=== PATIENT | female | born 1955 | race Caucasian/White ===

== ENCOUNTER 2021-02-08 11:34 | Outpatient (AMBR) | payer MEDICARE, MEDICAID, SELFPAY ==
--- NOTE | 2021-01-17 13:00 | PT.OIERPT ---
PT OP Initial Eval Patient Information Visit Reasons: lumbar radiculitis Medical Diagnosis: M54.16 Treatment Dx #1: LBP Date of Onset: 8 weeks ago Initial Assessment Subjective Pt is 65 yr old female with long Hx of LBP exacerbation x8 weeks that she attributes to bulging disks. Increased pain with bending, lifting and twisting. Difficulty with walking more than 5 minutes to shop and do HH chores. PLOF: pt could ambulate community distances without limitations. PMH: COPD, pacemaker, HTN, DM, thyroidism, allergies, Covid x2, supplemental 02 at home Imaging: MRI in EMR L5-S1 2 mm central lumbar disc bulge, L4-L5 10 mm central right paracentral disc bulge displacing the right L5 nerve root, L3-L4 4 mm central lumbar disc bulge, L2-L3 5 mm right paracentral disc bulge?? Pt goal: less LBP Objective Trunk ArOM: B SB 50% of normal with pain L>R Extension: 30% with pain around L4-5, L5-S1 centrally flexion: 8 from floor with LBP B rotation: 60% R SLR ROM: 45 deg. L SLR: 50 deg with posterior knee neural tension, LBP LE strength: B hamstrings: 4-/5 Quads 4-/5 TTP: moderate paraspinals L4-5 Neuro: L SLR: positive Assessment Pt presents with trunk flexion sensitivity and overlying myofascial pain and spasming around L4-5. Pt has lumbar extensor atrophy and pain with prolonged standing. These findings are consistent with MRI findings of lower lumbar disc bulges. Pt requires skilled therapy in order to decrease pain and improve standing tolerance and has fair rehab potential. Short Term and Assisted Goals 1. Ind with HEP 2. Improved standing tolerance to 20 minutes with <=4/10 LBP 3. Pt will improve ambulatory distance to [address] 4. Pt will squat x15 with lumbar lordosis and no increase in LBP Treatment Plan 90 day POC in order to complete visits. Pt requires skilled therapy in order to increase strength, decrease pain and address aforementioned impairments. Rx may consist of Therex, Manual therapy, Neuromuscular re-education, Gait training, and therapeutic activities. Modalities as indicated-moist heat packs, ice packs, mechanical traction, estim Frequency and Duration 2x a week for 6 weeks Certification Dates: 01/17/21 to 04/17/20 Office Procedures PT Treatments PT Date of Service: 01/17/21 OP PT Eval Mod Complex 30 minutes: Yes
--- NOTE | 2021-01-22 14:19 | PT.ODAYNRPT ---
PT Outpatient Daily Note Date of Service: 01/22/21 OP Daily Note Visit Reasons: lumbar radiculitis Outpatient Physical Therapy Treatment Date: 01/22/21 Subjective: Some LBP today and she has some LE mm cramping with the austrian ball LTR's. Pt points to the L5-S1 region centrally as site of pain. Objective: See f/S for therex MT: STM L5-S1 region with Graston x10' Mechanical traction L/S x7' at 35 lbs Assessment: Moderate tissue irritability with transitional movements and min/mod TTP with manual therapy. Plan: Continue per POC Length of Time (minutes) of Treatment: 30 Minutes Office Procedures PT Treatments PT Date of Service: 01/17/21 OP PT Eval Mod Complex 30 minutes: Yes PT Treatments PT Date of Service: 01/22/21 Therapeutic Exercise 15 minutes: Yes Manual Web Operations Manager 15 minutes: Yes
--- NOTE | 2021-01-24 09:45 | PT.ODAYNRPT ---
PT Outpatient Daily Note Date of Service: 01/24/21 OP Daily Note Visit Reasons: lumbar radiculitis Outpatient Physical Therapy Treatment Date: 01/24/21 Subjective: Pt reports 3/10 pain today. Pt reports that she was bending over to lifting thing recently. Pt reports mechanical traction is helping her walk. Objective: See flow chart for therex. MT: STM w/ graston L/S x 10mins. Mechanical Traction: L/S x 7mins. Assessment: Pt did not complete reps w/ SKTC on R leg due to increased pain. Pt had SOB during SB curls. Pt required rest breaks and verbal cues for proper therex technique. Pt tolerated MT w/ minimal complaints of pain. Pt had less pain response w/ mechanical traction. Pt does not prefer to lay flat due to difficulty breathing. Plan: Cont POC per PT. Length of Time (minutes) of Treatment: 30 Minutes Office Procedures PT Treatments PT Date of Service: 01/17/21 OP PT Eval Mod Complex 30 minutes: Yes PT Treatments PT Date of Service: 01/22/21 Therapeutic Exercise 15 minutes: Yes Manual Automatic Toe Laster 15 minutes: Yes PT Treatments PT Date of Service: 01/24/21 Therapeutic Exercise 15 minutes: Yes Manual Automatic Toe Laster 15 minutes: Yes
--- NOTE | 2021-01-28 14:26 | PT.ODAYNRPT ---
PT Outpatient Daily Note Date of Service: 01/28/21 OP Daily Note Visit Reasons: lumbar radiculitis Outpatient Physical Therapy Treatment Date: 01/28/21 Subjective: Pt states feeling a tad better today. Pt reports she is bending forward at home and feels out of breath at times. Objective: See flow chart for therex. Mechanical Traction: L/S 35lbs x 7mins. Assessment: Pt required multiple rest breaks in between therex due to SOB. Pt wanted to hold off on MT due to aggravation of fibromyalgia. Pt tolerated 7 minutes on sci fit to w/ out complaints. Pt was more motivated today w/ therapy. Plan: Cont POC per PT. Length of Time (minutes) of Treatment: 30 Minutes Office Procedures PT Treatments PT Date of Service: 01/28/21 Therapeutic Exercise 30 minutes: Yes PT Treatments PT Date of Service: 01/17/21 OP PT Eval Mod Complex 30 minutes: Yes PT Treatments PT Date of Service: 01/22/21 Therapeutic Exercise 15 minutes: Yes Manual Local Government Legislator 15 minutes: Yes PT Treatments PT Date of Service: 01/24/21 Therapeutic Exercise 15 minutes: Yes Manual Local Government Legislator 15 minutes: Yes
--- NOTE | 2021-01-31 14:25 | PT.ODAYNRPT ---
PT Outpatient Daily Note Date of Service: 01/31/2021 OP Daily Note Visit Reasons: lumbar radiculitis Outpatient Physical Therapy Treatment Date: 01/31/21 Subjective: pt states her back was feeling sore from the HEP. she attempted heel slides at home in her bed but was not the samething as it hurt her back. Objective: see flow sheet. Assessment: advised her to hold on the HEP and lets focus on the PT visits. pt felt better on a more firm surface but is not able to get on the floor at home due to difficulty getting back up. she did her exercises well and moved onto the L/s traction. she denies increase in pain as it helps her relieve the pressure of her low back. Plan: continue POC per PT. Length of Time (minutes) of Treatment: 30 Minutes ABRASIVE WORKER Service Modifier Method I: Divide the number of min of care provided by the ABRASIVE WORKER/ACID PURIFICATION EQUIPMENT OPERATOR by the total min of care provided then multiply by 100. If greater than 11 percent modifier is required. Method II: Divide the total time of care provided to patient by 10 (round to the nearest whole number) and add 1 min. to set the minimum time requirement. If treatment total was 60 min., then 10% of 6 min Did ABRASIVE WORKER provide more than 10% of the care?: Yes PT CQ modifier applied: CQ Modifier applied Office Procedures PT Treatments PT Date of Service: 01/28/21 Therapeutic Exercise 30 minutes: Yes PT Treatments PT Date of Service: 01/17/21 OP PT Eval Mod Complex 30 minutes: Yes PT Treatments PT Date of Service: 01/22/21 Therapeutic Exercise 15 minutes: Yes Manual Laborer Cheesemaking 15 minutes: Yes PT Treatments PT Date of Service: 01/24/21 Therapeutic Exercise 15 minutes: Yes Manual Laborer Cheesemaking 15 minutes: Yes PT Treatments PT Date of Service: 01/31/21 Traction Mechanical: Yes Therapeutic Exercise 15 minutes: Yes
--- NOTE | 2021-02-04 13:07 | PTNOTE_ITS ---
PT Outpatient Daily Note Date of Service: 02/04/21 OP Daily Note Visit Reasons: lumbar radiculitis Outpatient Physical Therapy Treatment Date: 02/04/21 Subjective: Pt reports her back is feeling okay today and she has to bend over a lot last weekend. Objective: See flow chart for therex. Mechanical Traction: L/S 40lbs x 7 mins. Assessment: Pt tolerated therex well w/ out complaints. Pt tolerated mechanical traction w/ good response. Pt slow to go from supine to sitting at supervision assistance. Plan: Cont POC per PT. Length of Time (minutes) of Treatment: 30 Minutes Office Procedures PT Treatments PT Date of Service: 01/28/21 Therapeutic Exercise 30 minutes: Yes PT Treatments PT Date of Service: 01/17/21 OP PT Eval Mod Complex 30 minutes: Yes PT Treatments PT Date of Service: 01/22/21 Therapeutic Exercise 15 minutes: Yes Manual Hostess Party Sales Representative 15 minutes: Yes PT Treatments PT Date of Service: 01/24/21 Therapeutic Exercise 15 minutes: Yes Manual Hostess Party Sales Representative 15 minutes: Yes PT Treatments PT Date of Service: 01/31/21 Traction Mechanical: Yes Therapeutic Exercise 15 minutes: Yes PT Treatments PT Date of Service: 02/04/21 Therapeutic Exercise 30 minutes: Yes
--- NOTE | 2021-02-08 14:18 | PTNOTE_ITS ---
PT Outpatient Daily Note Date of Service: 02/08/2021 OP Daily Note Visit Reasons: lumbar radiculitis Outpatient Physical Therapy Treatment Date: 02/08/21 Subjective: pt stated she did core exercises and that increased her back pain. advised her to stop the core exercises to see if her back pain resides. Objective: see flow sheet. Assessment: pt needed assisted with piriformis stretch as she is not able to reach and hold the knee. PROM for her stretch for BLE. she tolerated well with no complaints. she needed assistance with bed mobility due to back pain. onto the traction she held her position but is not sure of the traction increased her pain or the core exercises. Plan: continue POC per PT. Length of Time (minutes) of Treatment: 30 Minutes FOUNDATION RELATIONS DIRECTOR Service Modifier Method I: Divide the number of min of care provided by the FOUNDATION RELATIONS DIRECTOR/ROUNDING AND BACKING MACHINE OPERATOR by the total min of care provided then multiply by 100. If greater than 11 percent modifier is required. Method II: Divide the total time of care provided to patient by 10 (round to the nearest whole number) and add 1 min. to set the minimum time requirement. If treatment total was 60 min., then 10% of 6 min Did FOUNDATION RELATIONS DIRECTOR provide more than 10% of the care?: Yes PT CQ modifier applied: CQ Modifier applied Office Procedures PT Treatments PT Date of Service: 01/28/21 Therapeutic Exercise 30 minutes: Yes PT Treatments PT Date of Service: 01/17/21 OP PT Eval Mod Complex 30 minutes: Yes PT Treatments PT Date of Service: 01/22/21 Therapeutic Exercise 15 minutes: Yes Manual Medical Social Consultant 15 minutes: Yes PT Treatments PT Date of Service: 01/24/21 Therapeutic Exercise 15 minutes: Yes Manual Medical Social Consultant 15 minutes: Yes PT Treatments PT Date of Service: 01/31/21 Traction Mechanical: Yes Therapeutic Exercise 15 minutes: Yes PT Treatments PT Date of Service: 02/04/21 Therapeutic Exercise 30 minutes: Yes PT Treatments PT Date of Service: 02/08/21 Traction Mechanical: Yes Therapeutic Exercise 15 minutes: Yes
== END 2021-02-10 23:59 | disposition home or self-care (01) ==
PROVIDERS: PCP Physical Medicine & Rehabilitation Pain Medicine; Referring Provider Physical Medicine & Rehabilitation Pain Medicine; Visit Provider Physical Medicine & Rehabilitation Pain Medicine
DX: M54.16 Radiculopathy, lumbar region (principal); M54.50 Low back pain, unspecified; R26.2 Difficulty in walking, not elsewhere classified; M62.830 Muscle spasm of back; I10 Essential (primary) hypertension; E11.9 Type 2 diabetes mellitus without complications; Z95.0 Presence of cardiac pacemaker; J44.9 Chronic obstructive pulmonary disease, unspecified
CPT/HCPCS: 97012; 97110; 97140; 97162

== ENCOUNTER 2021-02-14 11:05 | Outpatient (AMBR) | payer MEDICARE, MEDICAID, SELFPAY ==
--- NOTE | 2021-02-11 13:06 | PT.ODAYNRPT ---
PT Outpatient Daily Note Date of Service: 02/11/2021 OP Daily Note Visit Reasons: lumbar radiculitis Outpatient Physical Therapy Treatment Date: 02/11/21 Subjective: Pt reports back is in a lot of pain today. She gardens a lot. Pt reports she wants to build strength. Objective: See flow chart for therex. Assessment: Pt had good response to HMP in supine and HMP helped alleviate some of her pain. Pt able to perform additional therex today due her preference of building strength. Plan: Cont POC per PT. Length of Time (minutes) of Treatment: 30 Minutes Office Procedures PT Treatments PT Date of Service: 02/11/21 Therapeutic Exercise 30 minutes: Yes
--- NOTE | 2021-02-14 14:29 | PT.ODAYNRPT ---
PT Outpatient Daily Note Date of Service: 02/14/21 OP Daily Note Visit Reasons: lumbar radiculitis Outpatient Physical Therapy Treatment Date: 02/14/21 Subjective: Pt feels like her legs are weak and wants to do some strengthening therex. Objective: See F/S for therex Assessment: R foot pain limits WB and bike therex. Mod/High tissue irritability with therex and supine to stand transfers. Plan: Continue per POC Length of Time (minutes) of Treatment: 30 Minutes Office Procedures PT Treatments PT Date of Service: 02/11/21 Therapeutic Exercise 30 minutes: Yes PT Treatments PT Date of Service: 02/14/21 Therapeutic Exercise 30 minutes: Yes
--- NOTE | 2021-03-28 11:36 | PT.ODS1RPT ---
PT OP Progress/Discharge Note Date of Service: 03/28/21 Progress Note/DC Note Progress Note/Discharge Note: DC Note Patient Information Visit Reasons: lumbar radiculitis Service Continue Service or Discharge: Discharge Discharge Date: 03/28/21 Status Assessment: Pt has attended 8/12 Rx visits but MD order says 8 visits. We need a signed progress note or new therapy order to extend POC by 6 visits in order to meet therapy goals. There has not been much change so far in objective findings due to continued pain. Plan: We never received a signed eval or progress note to extend the POC so pt is discharged from PT as she has done the 8 visits. Office Procedures PT Treatments PT Date of Service: 02/11/21 Therapeutic Exercise 30 minutes: Yes PT Treatments PT Date of Service: 02/14/21 Therapeutic Exercise 30 minutes: Yes
== END 2021-03-12 23:59 | disposition home or self-care (01) ==
PROVIDERS: PCP Physical Medicine & Rehabilitation Pain Medicine; Referring Provider Physical Medicine & Rehabilitation Pain Medicine; Visit Provider Physical Medicine & Rehabilitation Pain Medicine
DX: M54.16 Radiculopathy, lumbar region (principal); M54.50 Low back pain, unspecified; R26.2 Difficulty in walking, not elsewhere classified; I10 Essential (primary) hypertension; E11.9 Type 2 diabetes mellitus without complications; Z95.0 Presence of cardiac pacemaker
CPT/HCPCS: 97110

== ENCOUNTER → 2024-03-01 | Outpatient (CLI) | payer OTHER, MEDICAID, SELFPAY ==
[2024-03-01 13:39] LABS: Collection Type, Urine Clean Catch
[2024-03-01 13:49] LABS: Basophils % (Auto) 1 % (0-2.5); Eosinophils # (Auto) 0.2 Thou/mm3 (0.0-0.5); Eosinophils % (Auto) 2 % (0-10); Hematocrit 43.4 % (36.0-46.0); Hemoglobin 13.7 g/dL (12.0-16.0); Immature Granulocytes % (Auto) 1 % (0-0); Immature Granulocytes Auto 0.11 Thou/mm3 (0.00-0.00); Lymphocytes # (Auto) 2.3 Thou/mm3 (1.0-4.8); Lymphocytes % (Auto) 28 % (10-50); Mean Corpuscular HGB Conc 31.6 g/dl (31.0-37.0); Mean Corpuscular Hemoglobin 27.3 pg (25.0-35.0); Mean Corpuscular Volume 87 fL (80-100); Monocytes # (Auto) 0.5 Thou/mm3 (0.0-0.8); Monocytes % (Auto) 6 % (0-12); Neutrophils # (Auto) 5.1 Thou/mm3 (1.8-7.7); Neutrophils % (Auto) 62 % (37-80); Nucleated Red Blood Cell % 0 /100 WBC (0); Platelet Count 141 Thou/mm3 (140-440); RDW Standard Deviation 47.9 fL (36.4-46.3); Red Blood Count 5.02 Miln/mm3 (4.00-5.20); White Blood Count 8.2 Thou/mm3 (3.6-11.0)
[2024-03-01 14:08] LABS: Glucose Estimated Average 140 mg/dL (80-131); Hemoglobin A1C 6.5 % Hgb (4.8-6.0)
[2024-03-01 14:15] LABS: Alanine Aminotransferase 34 U/L (10-49); Albumin, Serum 4.3 gm/dL (3.4-4.8); Alkaline Phosphatase 88 U/L (46-116); Anion Gap 6 (7-16); Aspartate Amino Transferase 23 U/L (0-34); BUN/Creatinine Ratio 26 Ratio (12-20); Bilirubin,Total 0.5 mg/dL (0.3-1.2); Blood Urea Nitrogen 18 mg/dL (9-23); Calcium 9.3 mg/dL (8.3-10.6); Calcium (Corrected) 9.3 mg/dL (8.5-10.1); Carbon Dioxide 29.2 mMol/L (20.0-31.0); Cardiac Risk Estimate 2.7 RATIO (3.7-5.6); Chloride 104 mMol/L (98-107); Cholesterol 138 mg/dL (132-200); Creatinine (Component) 0.7 mg/dL (0.6-1.3); Globulin 2.2 gm/dL (2.3-3.5); Glucose 128 mg/dL (74-106); HDL Cholesterol 51 mg/dL (40-60); LDL Cholesterol,Calculated 60 mg/dL (0-130); Osmolality,Calculated 281 (275-295); Potassium 3.8 mMol/L (3.4-5.1); Sodium 139 mMol/L (136-145); Total Protein 6.5 gm/dL (5.7-8.2); Triglycerides 137 mg/dL (30-150); eGFR > 60 See Note
[2024-03-01 14:22] LABS: Creatinine MALB Rnd Ur 76 mg/dL (30-125); Microalbumin, Random Urine < 3 mg/L (0-300)
[2024-03-01 14:23] LABS: Bilirubin,Urine Negative (Negative); Blood,Urine Negative (Negative); Clarity,Urine Clear (Clear/Hazy); Color,Urine Lt-Yellow (Lt Yel-Yel); Glucose, Urine 4+ (Negative); Ketones,Urine Negative (Negative); Leukocyte Esterase,Urine Negative (Negative); Nitrite,Urine Negative (Negative); PH,Urine 6.5 (5.0-7.0); Protein,Urine Negative (Neg - Trace); RBC,Urine 1 /hpf (0-3); Specific Gravity,Urine 1.023 (1.001-1.035); Squamous Epithelial Cell,Urine < 1 /hpf (0-5); Urobilinogen,Urine Negative mg/dL (0.0-1.0); WBC,Urine 2 /hpf (0-5)
== END | disposition home or self-care (01) ==
PROVIDERS: PCP Internal Medicine; Referring Provider Internal Medicine; Visit Provider Internal Medicine
DX: E11.9 Type 2 diabetes mellitus without complications (principal); I10 Essential (primary) hypertension; E78.5 Hyperlipidemia, unspecified; E03.9 Hypothyroidism, unspecified
CPT/HCPCS: 36415; 80053; 80061; 81001; 82043; 82570; 83036; 84443; 85025

== ENCOUNTER → 2024-06-23 | Outpatient (CLI) | payer MEDICARE, MEDICAID, SELFPAY ==
[2024-06-23 14:09] LABS: Collection Type, Urine Clean Catch
[2024-06-23 14:22] LABS: Basophils % (Auto) 1 % (0-2.5); Eosinophils # (Auto) 0.2 Thou/mm3 (0.0-0.5); Eosinophils % (Auto) 2 % (0-10); Immature Granulocytes % (Auto) 0 % (0-0); Immature Granulocytes Auto 0.03 Thou/mm3 (0.00-0.00); Lymphocytes # (Auto) 2.2 Thou/mm3 (1.0-4.8); Lymphocytes % (Auto) 32 % (10-50); Mean Corpuscular HGB Conc 31.8 g/dl (31.0-37.0); Mean Corpuscular Hemoglobin 27.6 pg (25.0-35.0); Mean Corpuscular Volume 87 fL (80-100); Monocytes # (Auto) 0.6 Thou/mm3 (0.0-0.8); Monocytes % (Auto) 8 % (0-12); Neutrophils # (Auto) 3.9 Thou/mm3 (1.8-7.7); Neutrophils % (Auto) 57 % (37-80); Nucleated Red Blood Cell % 0 /100 WBC (0); Platelet Count 173 Thou/mm3 (140-440); RDW Standard Deviation 46.6 fL (36.4-46.3); Red Blood Count 5.07 Miln/mm3 (4.00-5.20); White Blood Count 6.8 Thou/mm3 (3.6-11.0)
[2024-06-23 14:28] LABS: Bacteria,Urine 3+; Bilirubin,Urine Negative (Negative); Blood,Urine Negative (Negative); Clarity,Urine Clear (Clear/Hazy); Color,Urine Lt-Yellow (Lt Yel-Yel); Glucose, Urine 4+ (Negative); Ketones,Urine Negative (Negative); Leukocyte Esterase,Urine Negative (Negative); Nitrite,Urine Negative (Negative); Protein,Urine Negative (Neg - Trace); RBC,Urine 1 /hpf (0-3); Specific Gravity,Urine 1.028 (1.001-1.035); Squamous Epithelial Cell,Urine 1 /hpf (0-5); Urobilinogen,Urine Negative mg/dL (0.0-1.0); WBC,Urine 3 /hpf (0-5)
[2024-06-23 14:42] LABS: Glucose Estimated Average 143 mg/dL (80-131); Hemoglobin A1C 6.6 % Hgb (4.8-6.0)
[2024-06-23 15:05] LABS: Creatinine MALB Rnd Ur 62 mg/dL (30-125); Microalbumin, Random Urine < 3 mg/L (0-300)
[2024-06-23 15:22] LABS: Alanine Aminotransferase 34 U/L (10-49); Albumin, Serum 4.4 gm/dL (3.4-4.8); Anion Gap 7 (7-16); Aspartate Amino Transferase 22 U/L (0-34); BUN/Creatinine Ratio 26 Ratio (12-20); Bilirubin,Total 0.6 mg/dL (0.3-1.2); Blood Urea Nitrogen 18 mg/dL (9-23); Calcium 9.5 mg/dL (8.3-10.6); Calcium (Corrected) 9.5 mg/dL (8.5-10.1); Chloride 102 mMol/L (98-107); Creatinine (Component) 0.7 mg/dL (0.6-1.3); Glucose 132 mg/dL (74-106); Osmolality,Calculated 287 (275-295); Sodium 142 mMol/L (136-145); Total Protein 6.6 gm/dL (5.7-8.2); eGFR > 60 See Note
[2024-06-23 15:23] LABS: Alkaline Phosphatase 92 U/L (46-116); Cardiac Risk Estimate 2.5 RATIO (3.7-5.6); Cholesterol 134 mg/dL (132-200); Globulin 2.2 gm/dL (2.3-3.5); HDL Cholesterol 54 mg/dL (40-60); LDL Cholesterol,Calculated 56 mg/dL (0-130); Thyroid Stimulating Hormone 1.14 uIU/mL (0.55-4.78); Triglycerides 119 mg/dL (30-150)
== END | disposition home or self-care (01) ==
LOC: COPL 13:39
PROVIDERS: PCP Internal Medicine; Referring Provider Internal Medicine; Visit Provider Internal Medicine
DX: E11.9 Type 2 diabetes mellitus without complications (principal); I10 Essential (primary) hypertension; E78.5 Hyperlipidemia, unspecified; E03.9 Hypothyroidism, unspecified
CPT/HCPCS: 36415; 80053; 80061; 81001; 82043; 82570; 83036; 84443; 85025

== ENCOUNTER → 2024-07-21 | Outpatient (CLI) | payer MEDICARE, MEDICAID, SELFPAY ==
--- NOTE | 2024-07-21 09:30 | XR_ITS ---
Examination: Screening digital mammography, bilateral Computer aided detection 3-D breast Tomosynthesis, bilateral Date and time of exam: 07/21/2024, 9:37 AM Comparisons: December 2021, June 2023 Indications: Screening Technique: Nonmagnified MLO, CC views of the breasts to been obtained, reconstructed from 3-D Tomosynthesis images. R2 computer aided detection program utilized for evaluation of suspicious masses and/or abnormal calcifications. 3-D Tomosynthesis images obtained. Technologist: Findings: There are scattered areas of fibroglandular density. No evidence of abnormal masses or suspicious calcifications. Impression: BI-RADS category 1: Negative findings (within normal) Recommend 1 year follow-up mammogram
== END | disposition home or self-care (01) ==
LOC: CDIM 09:24
PROVIDERS: Referring Provider Internal Medicine; Visit Provider Internal Medicine
DX: Z12.31 Encounter for screening mammogram for malignant neoplasm of breast (principal); R92.313 Mammographic fatty tissue density, bilateral breasts
CPT/HCPCS: 77063; 77067

== ENCOUNTER → 2024-10-26 | Outpatient (CLI) | payer MEDICARE, MEDICAID, SELFPAY ==
[2024-10-26 14:12] LABS: Basophils # (Auto) 0.0 Thou/mm3 (0.0-0.2); Basophils % (Auto) 1 % (0-2.5); Eosinophils # (Auto) 0.2 Thou/mm3 (0.0-0.5); Eosinophils % (Auto) 2 % (0-10); Hematocrit 40.9 % (36.0-46.0); Hemoglobin 13.4 g/dL (12.0-16.0); Immature Granulocytes Auto 0.09 Thou/mm3 (0.00-0.00); Lymphocytes # (Auto) 2.4 Thou/mm3 (1.0-4.8); Lymphocytes % (Auto) 33 % (10-50); Mean Corpuscular HGB Conc 32.8 g/dl (31.0-37.0); Mean Corpuscular Hemoglobin 28.2 pg (25.0-35.0); Mean Corpuscular Volume 86 fL (80-100); Monocytes # (Auto) 0.5 Thou/mm3 (0.0-0.8); Monocytes % (Auto) 7 % (0-12); Neutrophils # (Auto) 4.1 Thou/mm3 (1.8-7.7); Neutrophils % (Auto) 56 % (37-80); Nucleated Red Blood Cell # 0.00 Thou/mm3 (0.00-0.00); Nucleated Red Blood Cell % 0 /100 WBC (0); Platelet Count 175 Thou/mm3 (140-440); RDW Standard Deviation 47.5 fL (36.4-46.3); Red Blood Count 4.76 Miln/mm3 (4.00-5.20); White Blood Count 7.2 Thou/mm3 (3.6-11.0)
[2024-10-26 14:22] LABS: Glucose Estimated Average 143 mg/dL (80-131); Hemoglobin A1C 6.6 % Hgb (4.8-6.0)
[2024-10-26 14:24] LABS: Collection Type, Urine Clean Catch
[2024-10-26 14:36] LABS: Alanine Aminotransferase 32 U/L (10-49); Albumin, Serum 4.3 gm/dL (3.4-4.8); Albumin/Globulin Ratio 1.7 (1.2-2.2); Alkaline Phosphatase 86 U/L (46-116); Anion Gap 7 (7-16); Aspartate Amino Transferase 25 U/L (0-34); BUN/Creatinine Ratio 17 Ratio (12-20); Bilirubin,Total 0.4 mg/dL (0.3-1.2); Blood Urea Nitrogen 15 mg/dL (9-23); Calcium 9.3 mg/dL (8.3-10.6); Calcium (Corrected) 9.3 mg/dL (8.5-10.1); Carbon Dioxide 29.1 mMol/L (20.0-31.0); Cardiac Risk Estimate 2.4 RATIO (3.7-5.6); Chloride 103 mMol/L (98-107); Cholesterol 119 mg/dL (132-200); Creatinine (Component) 0.9 mg/dL (0.6-1.3); Globulin 2.5 gm/dL (2.3-3.5); Glucose 126 mg/dL (74-106); HDL Cholesterol 49 mg/dL (40-60); LDL Cholesterol,Calculated 49 mg/dL (0-130); Osmolality,Calculated 280 (275-295); Potassium 4.1 mMol/L (3.4-5.1); Sodium 139 mMol/L (136-145); Thyroid Stimulating Hormone 1.76 uIU/mL (0.55-4.78); Total Protein 6.8 gm/dL (5.7-8.2); Triglycerides 106 mg/dL (30-150); eGFR > 60 See Note
[2024-10-26 14:45] LABS: Bacteria,Urine 1+; Bilirubin,Urine Negative (Negative); Blood,Urine Negative (Negative); Clarity,Urine Clear (Clear/Hazy); Color,Urine Lt-Yellow (Lt Yel-Yel); Glucose, Urine 4+ (Negative); Ketones,Urine Negative (Negative); Leukocyte Esterase,Urine Negative (Negative); Nitrite,Urine Negative (Negative); PH,Urine 6.0 (5.0-7.0); Protein,Urine Negative (Neg - Trace); RBC,Urine 1 /hpf (0-3); Specific Gravity,Urine 1.031 (1.001-1.035); Squamous Epithelial Cell,Urine 2 /hpf (0-5); Urobilinogen,Urine Negative mg/dL (0.0-1.0); WBC,Urine 2 /hpf (0-5)
[2024-10-26 14:47] LABS: Creatinine MALB Rnd Ur 83 mg/dL (30-125); Microalbumin Creat Ratio 5 mg/gCrea (<30); Microalbumin, Random Urine 4 mg/L (0-300)
== END | disposition home or self-care (01) ==
LOC: COPL 12:29
PROVIDERS: PCP Internal Medicine; Referring Provider Internal Medicine; Visit Provider Internal Medicine
DX: E11.9 Type 2 diabetes mellitus without complications (principal); I10 Essential (primary) hypertension; E78.5 Hyperlipidemia, unspecified
CPT/HCPCS: 36415; 80053; 80061; 81001; 82043; 82570; 83036; 84443; 85025

== ENCOUNTER → 2024-11-15 | Outpatient (CLI) | payer MEDICARE, MEDICAID, SELFPAY ==
[2024-11-15 13:32] LABS: Sed Rate (ESR) 4 mm/hr (0-30)
[2024-11-21 14:46] LABS: CCP Antibody (IgG)* <16 Units; DNA (ds) Antibody* <1 IU/mL
== END | disposition home or self-care (01) ==
LOC: COPL 12:18
PROVIDERS: PCP Internal Medicine; Referring Provider Internal Medicine; Visit Provider Internal Medicine
DX: M12.38 Palindromic rheumatism, other specified site (principal)
CPT/HCPCS: 36415; 85652; 86200; 86225

== ENCOUNTER → 2024-12-16 | Outpatient (CLI) | payer MEDICARE, MEDICAID, SELFPAY ==
--- NOTE | 2024-12-16 13:20 | XR_ITS ---
Examination: Bone densitometry Date and time of exam:December 16, 2024, 1333 hours INDICATIONS: Hysterectomy age 46, series for asthma 40 years Technique: Lumbar spine and hip total bone mineralization values of an calculated. Peak reference and age match control results have been displayed. Findings: Lumbar spine total bone mineralization is1.228 gm/cm2. This is 1.6 standard deviations above peak reference. This is 3.7 standard deviations above age-matched controls. Hip total bone mineralization is 1.168 gm/cm2 This is 1.9 standard deviations above peak reference. This is 3.3 standard deviations above age-matched controls Impression: There is normal mineralization based on lumbar spine measurements. There is normal mineralization based on hip measurements Lumbar mineralization is increased 5.8% compared with April 11, 2022. Hip mineralization is increased 3.1% compared with April 11, 2022
== END | disposition home or self-care (01) ==
LOC: CDIM 13:04
PROVIDERS: Referring Provider Internal Medicine; Visit Provider Internal Medicine
DX: M81.0 Age-related osteoporosis without current pathological fracture (principal)
CPT/HCPCS: 77080

== ENCOUNTER → 2025-02-22 | Outpatient (CLI) | payer MEDICARE, MEDICAID, SELFPAY ==
[2025-02-22 14:27] LABS: Collection Type, Urine Clean Catch
[2025-02-22 15:35] LABS: Basophils # (Auto) 0.0 Thou/mm3 (0.0-0.2); Basophils % (Auto) 1 % (0-2.5); Eosinophils # (Auto) 0.2 Thou/mm3 (0.0-0.5); Eosinophils % (Auto) 2 % (0-10); Hematocrit 40.7 % (36.0-46.0); Hemoglobin 13.6 g/dL (12.0-16.0); Immature Granulocytes Auto 0.04 Thou/mm3 (0.00-0.00); Lymphocytes # (Auto) 2.2 Thou/mm3 (1.0-4.8); Lymphocytes % (Auto) 30 % (10-50); Mean Corpuscular HGB Conc 33.4 g/dl (31.0-37.0); Mean Corpuscular Hemoglobin 28.9 pg (25.0-35.0); Mean Corpuscular Volume 87 fL (80-100); Monocytes # (Auto) 0.5 Thou/mm3 (0.0-0.8); Monocytes % (Auto) 6 % (0-12); Neutrophils # (Auto) 4.4 Thou/mm3 (1.8-7.7); Neutrophils % (Auto) 60 % (37-80); Nucleated Red Blood Cell # 0.00 Thou/mm3 (0.00-0.00); Nucleated Red Blood Cell % 0 /100 WBC (0); Platelet Count 147 Thou/mm3 (140-440); RDW Standard Deviation 46.5 fL (36.4-46.3); Red Blood Count 4.70 Miln/mm3 (4.00-5.20); White Blood Count 7.2 Thou/mm3 (3.6-11.0)
[2025-02-22 15:49] LABS: Creatinine MALB Rnd Ur 101 mg/dL (30-125); Microalbumin Creat Ratio 6 mg/gCrea (<30); Microalbumin, Random Urine 6 mg/L (0-300)
[2025-02-22 15:50] LABS: Bacteria,Urine 1+; Bilirubin,Urine Negative (Negative); Blood,Urine Negative (Negative); Clarity,Urine Clear (Clear/Hazy); Color,Urine Yellow (Lt Yel-Yel); Glucose, Urine 4+ (Negative); Ketones,Urine Negative (Negative); Leukocyte Esterase,Urine Negative (Negative); Nitrite,Urine Negative (Negative); PH,Urine 6.0 (5.0-7.0); Protein,Urine Negative (Neg - Trace); RBC,Urine 3 /hpf (0-3); Specific Gravity,Urine 1.037 (1.001-1.035); Squamous Epithelial Cell,Urine 1 /hpf (0-5); Urobilinogen,Urine Negative mg/dL (0.0-1.0); WBC,Urine 2 /hpf (0-5)
[2025-02-22 16:02] LABS: Alanine Aminotransferase 33 U/L (10-49); Albumin, Serum 4.6 gm/dL (3.4-4.8); Albumin/Globulin Ratio 2.0 (1.2-2.2); Alkaline Phosphatase 88 U/L (46-116); Anion Gap 8 (7-16); Aspartate Amino Transferase 26 U/L (0-34); BUN/Creatinine Ratio 27 Ratio (12-20); Bilirubin,Total 0.6 mg/dL (0.3-1.2); Blood Urea Nitrogen 16 mg/dL (9-23); Calcium 9.7 mg/dL (8.3-10.6); Calcium (Corrected) 9.7 mg/dL (8.5-10.1); Carbon Dioxide 29.0 mMol/L (20.0-31.0); Chloride 106 mMol/L (98-107); Creatinine (Component) 0.6 mg/dL (0.6-1.3); Globulin 2.3 gm/dL (2.3-3.5); Glucose 111 mg/dL (74-106); Osmolality,Calculated 287 (275-295); Potassium 3.7 mMol/L (3.4-5.1); Sodium 143 mMol/L (136-145); Thyroid Stimulating Hormone 1.31 uIU/mL (0.55-4.78); Total Protein 6.9 gm/dL (5.7-8.2); eGFR > 60 See Note
[2025-02-22 16:18] LABS: Cardiac Risk Estimate 2.5 RATIO (3.7-5.6); Cholesterol 123 mg/dL (132-200); HDL Cholesterol 49 mg/dL (40-60); LDL Cholesterol,Calculated 52 mg/dL (0-130); Triglycerides 108 mg/dL (30-150)
[2025-02-22 16:49] LABS: Glucose Estimated Average 146 mg/dL (80-131); Hemoglobin A1C 6.7 % Hgb (4.8-6.0)
== END | disposition home or self-care (01) ==
LOC: COPL 13:46
PROVIDERS: PCP Internal Medicine; Referring Provider Internal Medicine; Visit Provider Internal Medicine
DX: E11.9 Type 2 diabetes mellitus without complications (principal); I10 Essential (primary) hypertension; E78.5 Hyperlipidemia, unspecified
CPT/HCPCS: 36415; 80053; 80061; 81001; 82043; 82570; 83036; 84443; 85025